=== PATIENT | male | born 1960 | race Caucasian/White ===

== ENCOUNTER → 2020-06-04 09:01 | Outpatient (BNVA) | payer MEDICARE, SELFPAY | PROVIDERS: PCP Nurse Practitioner Family; Visit Provider Nurse Practitioner Family | DX: I10 Essential (primary) hypertension (principal); H26.9 Unspecified cataract | CPT/HCPCS: 80053; 80061; 84443; 85025 ==

== ENCOUNTER → 2021-03-21 08:49 | Outpatient (BNVA) | payer MEDICARE, SELFPAY | PROVIDERS: PCP Nurse Practitioner Family; Visit Provider Nurse Practitioner Family | DX: I10 Essential (primary) hypertension (principal); Z12.5 Encounter for screening for malignant neoplasm of prostate | CPT/HCPCS: 80053; 80061; 84443; 85025; G0103 ==

== ENCOUNTER 2021-04-24 16:54 | Inpatient (IN) | payer MEDICARE, SELFPAY ==
[2021-04-24] VITALS (8 sets, daily range): BP systolic 94–116; BP diastolic 58–70; PULSE 75–87; RESP 18–34; TEMP 36.7; O2SAT 95–98; BMI 24.4
--- NOTE | 2021-04-24 16:59 | XRR_ITS ---
PROCEDURE INFORMATION: Exam: XR Chest Exam date and time: 04/24/2021 4:59 PM Age: 60 years old Clinical indication: Sternal or substernal pain; Patient HX: Chest pain x today TECHNIQUE: Imaging protocol: XR of the chest. Views: 1 view. COMPARISON: No relevant prior studies available. FINDINGS: Lungs: Unremarkable. No consolidation. Pleural spaces: Unremarkable. No pleural effusion. No pneumothorax. Heart/Mediastinum: Unremarkable. No cardiomegaly. Bones/joints: Unremarkable. XR/XR chest 1V portable [id number] IMPRESSION: No acute findings.
--- NOTE | 2021-04-24 16:59 | ECG_ITS ---
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 Measurements Intervals [place] Rate: 80 P: 13 CA: 134 QRS: -1 QRSD: 89 T: 30 QT: 372 QTc: 430 Interpretive Statements SINUS RHYTHM No previous ECG available for comparison Electronically Signed On 04-24-2021 20:03:59 CDT by Samuel Morrow M.D. [id number]
--- NOTE | 2021-04-24 17:05 | CTR_ITS ---
PROCEDURE INFORMATION: Exam: CTA Chest Without And With Contrast Exam date and time: 04/24/2021 5:05 PM Age: 60 years old Clinical indication: Sternal or substernal pain; Abdominal pain; Localized; Upper; Additional info: Rule out dissection TECHNIQUE: Imaging protocol: Computed tomographic angiography of the chest without and with contrast. 3D rendering (Not supervised by radiologist): MIP and/or 3D reconstructed images were created by the technologist. Radiation optimization: All CT scans at this facility use at least one of these dose optimization techniques: automated exposure control; mA and/or kV adjustment per patient size (includes targeted exams where dose is matched to clinical indication); or iterative reconstruction. Contrast material: OMNI 350; Contrast volume: 95 ml; Contrast route: INTRAVENOUS (IV); COMPARISON: CR (CHEST, ) 04/24/2021 5:15 PM RADIATION DOSE METRICS: Total DLP (mGy-cm): 1445.03 FINDINGS: Pulmonary arteries: The pulmonary arteries are adequately opacified for evaluation to the subsegmental level. There is no filling defect to suggest embolism. Aorta: No aortic dissection. The aortic sinus is dilated measuring up to 5 cm. Lungs: There is subsegmental atelectasis in the lung bases. Pleural spaces: Unremarkable. No pneumothorax. No pleural effusion. Heart: The heart is unremarkable. There is no pericardial effusion. Lymph nodes: There is no mediastinal or hilar lymphadenopathy. Bones/joints: Bones are unremarkable. Soft tissues: The extrathoracic soft tissues are unremarkable. Other findings: There are chronic bilateral L5 pars defects with grade 1 anterolisthesis of L5 on S1. IMPRESSION: 1. No pulmonary embolism. 2. 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 There is no aortic dissection. In general, aortic diameters of 5.[address] patients at high risk for rupture and should be considered for intervention. If connective tissue diseases such as Marfan or Mustapha-Danlos disease is known, then a diameter of 5 cm prompts consideration of prophylactic aortic root replacement. PROCEDURE INFORMATION: Exam: CT Angiography Abdomen Without And With Contrast Exam date and time: 04/24/2021 5:05 PM Age: 60 years old Clinical indication: Sternal or substernal pain; Abdominal pain; Localized; Upper; Additional info: Rule out dissection TECHNIQUE: Imaging protocol: Computed tomographic angiography images of the abdomen without and with intravenous contrast material, including non-contrast images if performed. 3D rendering (Not supervised by radiologist): MIP and/or 3D reconstructed images were created by the technologist. Radiation optimization: All CT scans at this facility use at least one of these dose optimization techniques: automated exposure control; mA and/or kV adjustment per patient size (includes targeted exams where dose is matched to clinical indication); or iterative reconstruction. Contrast material: OMNI 350; Contrast volume: 95 ml; Contrast route: INTRAVENOUS (IV); COMPARISON: CR (CHEST, ) 04/24/2021 5:15 PM RADIATION DOSE METRICS: Total DLP (mGy-cm): 1445.03 FINDINGS: Aorta: There is mild aortic atherosclerotic disease. Celiac trunk and mesenteric arteries: No occlusion or significant stenosis. Renal arteries: No occlusion or significant stenosis. Liver: The liver is normal. Gallbladder and bile ducts: The gallbladder is normal. There is no biliary dilation. Pancreas: There are pancreatic calcifications suggesting sequelae of chronic pancreatitis. There is mild peripancreatic edema around the head, neck and uncinate process. Spleen: The spleen is unremarkable. Adrenals: The adrenal glands are unremarkable. Kidneys and ureters: The kidneys are unremarkable. No hydronephrosis or stones. No ureteral dilation. Stomach and bowel: The stomach is unremarkable. That Visible portions of the small bowel and colon are unremarkable. Appendix: The appendix is normal. Lymph nodes: Unremarkable. No enlarged lymph nodes. Intraperitoneal space: There is no free air or significant intraperitoneal free fluid. Bones/joints: There are chronic bilateral L5 pars defects with grade 1 anterolisthesis of L5 on S1. The visible portion of the pelvis and sacrum is intact. Soft tissues: The abdominal wall is intact. CT/CT angio chest abdomen IMPRESSION: 1. Acute interstitial edematous pancreatitis. No sign of necrosis or hemorrhage. 2. Incidental findings above. Radiation Dose CTDIVOL = (mGy): DLP = 1445.03~1445.03 (mGy-cm)
[2021-04-24] MEDS: morphine 4 mg/mL SDV 1 mL IVP (17:14)
--- NOTE | 2021-04-24 17:19 | ED_ITS ---
HPI - General Adult General: Chief complaint: ER Hold Stated complaint: CHEST PAIN Time Seen by Provider: 04/24/21 16:57 History of Present Illness: HPI narrative: CC: Chest Pain HPI: This is a [60] yo patient hx of smoking, HTN presenting to the ED complaining of acute sudden onset of sharp persistent chest pain from midepigastric area radiating to chest x 1 hr. patient was watching TV at home when this all happened and developed sudden onset sharp pain. patient denies any drug use no associated with shortness of breath, chest pain or dyspnea on exertion. Pain is not tearing in nature and does not radiate to the back. Pain not associated with vomiting or PO intake. Denies any recent sympathomimetic drug use. Patient denies any cough. Denies palpitations, dysphagia, diaphoresis, radiation of pain to bilateral arms, jaw. Denies F/N/V/D. Patient denies any recent immobility, surgery, unilateral leg swelling, or prior PE. Patient denies any orthopnea. No family history of aortic diseases. No history of Marfan, IV drug use, valvular disorder, or Erhlos Danlos disease. Onset: 2 hrs ago Duration: ongoing for the last 2 hrs Location: home Severity: severe Review of Systems Narrative: Constitutional: No fever, no chills. HEENT: No vision changes, no sore throat. CV: +chest pain, no palpitations. PULM: No cough, No dyspnea. GI: +abdominal pain, +N/-V/-D. : No dysuria, no frequency, no hematuria. MSKEL: No arthralgias, no edema. SKIN: No new rashes, no lesions. NEURO: No headache, no focal weakness. HEME: No easy bleeding or bruising. PSYCH: No change in mood or affect. [facility] ED PFSH: Medical History (Updated 04/25/21 @ 04:40 by Alicia Herrera MD) Aneurysm of thoracic aorta Cataract Essential hypertension Surgical History History of back surgery 1993 Hx of tonsillectomy Family History Father Hypertension Social History Smoking and tobacco status: former smoker Second hand smoke exposure: Yes Alcohol intake: never Desire information about alcohol rehabilitation?: No Counseling given: No Desire information about substance/drug rehabilitation?: No Counseling given: No Adopted: No Caregiver/support person: No Lives independently: Yes Household members: spouse Housing: House Marital status: Number of children: 2 Highest education level completed: High School Graduate Current occupational status: disabled Physical Exam Narrative: EXAM NARRATIVE: Head: Atraumatic, normocephalic Eyes: PERRL, EOMI, conjunctiva without injection ENT: Throat without erythema, lesions or exudate, MMM NECK: Supple, trachea midline, no JVD LUNGS: LCTA CV: RRR, S1,S2, no murmurs, rubs, gallops. 2+ peripheral pulses in UEs ABDOMEN: Soft, +moderate epigastric tenderness to palpation, nondistended, BS x4, no rigidity, no guarding, no rebound EXTREMITY: Normal ROM, no pitting edema, no calf tenderness to palpation SKIN: No rash or erythema NEURO: Awake and alert. No focal motor deficits. PSYCH: Normal mood and affect. Course Vital Signs: Vital signs: Vital Signs Temperature 98.1 F 04/26/21 08:00 Pulse Rate 77 04/26/21 10:30 Respiratory Rate 18 04/26/21 08:00 Blood Pressure 134/76 04/26/21 08:00 Pulse Oximetry 93 04/26/21 10:30 MDM - General Adult MDM Narrative: Medical decision making narrative: [60]yo patient w/ hx of HTN, smoking presenting to the ED with evaluation of new onset sharp chest pain lasting for 2 hrs. HDS, pulse 2+ radially bilaterally, no signs of fluid overload, AAOx3, neuro exam intact. Given History and Exam today I have no suspicion for ACS, Pneumothorax, Pneumonia, Pulmonary Embolus, Tamponade, Aortic Dissection or other emergent problems as a cause for this presentation. Workup: ECG, CXR, CBC, BMP, Troponin Interventions: Ibuprofen 600mg PRN pain Findings: ECG: No overt evidence of STEMI, hyperacute T waves, localizable STD or T wave inversions. No evidence of Brugada?s sign, delta wave, epsilon wave, significantly prolonged QTc, or malignant arrhythmia. No Q waves. CTA chest and abdomen showed thoracic aorta aneurysm of 5 cm and interstitial edematous pancreatitis. White count of 20 3K. Patient has had intractable abdominal pain due to pancreatitis. No signs of nausea or vomiting. No signs of biliary obstructions. Disposition: Admission. Patient is status post 2 L of fluid, will be admitted to the hospital for evaluation of severe pancreatitis and intractable pain. Lab Data: Labs: Lab Results 04/24/21 04/24/21 04/24/21 Range/Units 17:23 17:23 17:23 WBC 22.4 H (4.0-10.0) 10^3/ uL RBC 4.26 (4.1-5.3) 10^6/u L Hgb 14.5 (11.7-16.6) g/dL Hct 41.4 L (42.0-52.0) % MCV 97.2 H (80-94) fl MCH 34.0 (28.0-34.0) pg MCHC 35.0 (30.0-36.0) g/dL RDW 14.6 (12.1-15.1) % Plt Count 357 (130-400) 10^3/c mm MPV 9.6 (7.4-10.4) fL Neut % (Auto) 79.8 % Lymph % (Auto) 11.2 % Towner % (Auto) 7.1 % Eos % (Auto) 0.7 % Baso % (Auto) 0.4 % Neut # (Auto) 17.87 H (1.8-7.7) 10^3/u L Lymph # (Auto) 2.5 (0.8-4.8) 10^3/u L Towner # (Auto) 1.6 H (0.2-0.9) 10^3/u L Eos # (Auto) 0.2 (0.0-0.8) 10^3/u L Baso # (Auto) 0.1 (0.0-0.1) 10^3/u L Nucleated RBC % (a uto) 0 % Nucleated RBCs # 0.0 /100WBC Sodium Cancelled Potassium Cancelled Chloride Cancelled Carbon Dioxide Cancelled Anion Gap Cancelled BUN Cancelled Creatinine Cancelled GFR Calculation Cancelled Glucose Cancelled Calculated Osmolal ity Cancelled Calcium Cancelled Magnesium (1.7-2.3) mg/dL Total Bilirubin (0.15-1.2) mg/dL AST (0-40) U/L ALT (0-41) U/L Alkaline Phosphata se (40-130) IU/L Troponin T Baselin e 6 (0-15) ng/L Troponin T 120 Min lower [place] (0-15) ng/L Delta Troponin T (0-10) ABS# Total Protein (6.6-8.7) g/dL Albumin (3.5-5.2) g/dL Globulin (1.3-4.6) g/dL Triglycerides (0-150) mg/dL LDL Cholesterol Di rect (0-100) mg/dL Lipase (13-60) U/L Ethyl Alcohol (0-10) mg/dL 04/24/21 04/24/21 04/24/21 Range/Units 17:23 17:23 19:36 WBC (4.0-10.0) 10^3/ uL RBC (4.1-5.3) 10^6/u L Hgb (11.7-16.6) g/dL Hct (42.0-52.0) % MCV (80-94) fl MCH (28.0-34.0) pg MCHC (30.0-36.0) g/dL RDW (12.1-15.1) % Plt Count (130-400) 10^3/c mm MPV (7.4-10.4) fL Neut % (Auto) % Lymph % (Auto) % Towner % (Auto) % Eos % (Auto) % Baso % (Auto) % Neut # (Auto) (1.8-7.7) 10^3/u L Lymph # (Auto) (0.8-4.8) 10^3/u L Towner # (Auto) (0.2-0.9) 10^3/u L Eos # (Auto) (0.0-0.8) 10^3/u L Baso # (Auto) (0.0-0.1) 10^3/u L Nucleated RBC % (a uto) % Nucleated RBCs # /100WBC Sodium 138 Potassium 3.8 Chloride 100 Carbon Dioxide 21 L Anion Gap 20.8 H BUN 9 Creatinine 0.8 GFR Calculation 98.6 Glucose 117 H Calculated Osmolal ity 286 Calcium 8.8 Magnesium (1.7-2.3) mg/dL Total Bilirubin 0.4 (0.15-1.2) mg/dL AST 14 (0-40) U/L ALT 16 (0-41) U/L Alkaline Phosphata se 71 (40-130) IU/L Troponin T Baselin e (0-15) ng/L Troponin T 120 Min lower [place] 6.61 (0-15) ng/L Delta Troponin T 0.61 (0-10) ABS# Total Protein 6.8 (6.6-8.7) g/dL Albumin 4.5 (3.5-5.2) g/dL Globulin 2.3 (1.3-4.6) g/dL Triglycerides 429 H (0-150) mg/dL LDL Cholesterol Di rect 67 (0-100) mg/dL Lipase > 3781 H (13-60) U/L Ethyl Alcohol < 10 (0-10) mg/dL 04/25/21 04/25/21 Range/Units 06:02 06:02 WBC 17.8 H (4.0-10.0) 10^3/ uL RBC 3.73 L (4.1-5.3) 10^6/u L Hgb 12.8 (11.7-16.6) g/dL Hct 37.0 L (42.0-52.0) % MCV 99.2 H (80-94) fl MCH 34.3 H (28.0-34.0) pg MCHC 34.6 (30.0-36.0) g/dL RDW 14.7 (12.1-15.1) % Plt Count 279 (130-400) 10^3/c mm MPV 10.0 (7.4-10.4) fL Neut % (Auto) 82.9 % Lymph % (Auto) 8.5 % Towner % (Auto) 7.9 % Eos % (Auto) 0.1 % Baso % (Auto) 0.2 % Neut # (Auto) 14.76 H (1.8-7.7) 10^3/u L Lymph # (Auto) 1.5 (0.8-4.8) 10^3/u L Towner # (Auto) 1.4 H (0.2-0.9) 10^3/u L Eos # (Auto) 0.0 (0.0-0.8) 10^3/u L Baso # (Auto) 0.0 (0.0-0.1) 10^3/u L Nucleated RBC % (a uto) 0 % Nucleated RBCs # 0.0 /100WBC Sodium 139 Potassium 4.1 Chloride 108 H Carbon Dioxide 21 L Anion Gap 14.1 BUN 6 L Creatinine 0.6 L GFR Calculation 137.4 H Glucose 121 H Calculated Osmolal ity 287 Calcium 7.7 L Magnesium 1.7 (1.7-2.3) mg/dL Total Bilirubin 0.5 (0.15-1.2) mg/dL AST 13 (0-40) U/L ALT 11 (0-41) U/L Alkaline Phosphata se 63 (40-130) IU/L Troponin T Baselin e (0-15) ng/L Troponin T 120 Min lower [place] (0-15) ng/L Delta Troponin T (0-10) ABS# Total Protein 6.0 L (6.6-8.7) g/dL Albumin 3.7 (3.5-5.2) g/dL Globulin 2.3 (1.3-4.6) g/dL Triglycerides (0-150) mg/dL LDL Cholesterol Di rect (0-100) mg/dL Lipase (13-60) U/L Ethyl Alcohol (0-10) mg/dL Imaging Data^: Other Imaging: Radiologist's impression: [address] [id number] Scan ReportSigned Patient: Rickey Herman #: [id number]: 1960[facility][id number]/Sex: 60 / MADM Date: 04/24/21Loc: ERRoom/Bed:Attending Dr: Ordering Provider/Ordering MD: Bernadine Washington MD Date of Service: 04/24/21 Procedure(s): CT angio chest abdomen Accession Number(s): [id number] Report Number: [id number] PROCEDURE INFORMATION: Exam: CTA Chest Without And With Contrast Exam date and time: 04/24/2021 5:05 PM Age: 60 years old Clinical indication: Sternal or substernal pain; Abdominal pain; Localized; Upper; Additional info: Rule out dissection TECHNIQUE: Imaging protocol: Computed tomographic angiography of the chest without and with contrast. 3D rendering (Not supervised by radiologist): MIP and/or 3D reconstructed images were created by the technologist. Radiation optimization: All CT scans at this facility use at least one of these dose optimization techniques: automated exposure control; mA and/or kV adjustment per patient size (includes targeted exams where dose is matched to clinical indication); or iterative reconstruction. Contrast material: OMNI 350; Contrast volume: 95 ml; Contrast route: INTRAVENOUS (IV); COMPARISON: CR (CHEST, ) 04/24/2021 5:15 PM RADIATION DOSE METRICS: Total DLP (mGy-cm): 1445.03 FINDINGS: Pulmonary arteries: The pulmonary arteries are adequately opacified for evaluation to the subsegmental level. There is no filling defect to suggest embolism. Aorta: No aortic dissection. The aortic sinus is dilated measuring up to 5 cm. Lungs: There is subsegmental atelectasis in the lung bases. Pleural spaces: Unremarkable. No pneumothorax. No pleural effusion. Heart: The heart is unremarkable. There is no pericardial effusion. Lymph nodes: There is no mediastinal or hilar lymphadenopathy. Bones/joints: Bones are unremarkable. Soft tissues: The extrathoracic soft tissues are unremarkable. Other findings: There are chronic bilateral L5 pars defects with grade 1 anterolisthesis of L5 on S1. IMPRESSION: 1. No pulmonary embolism. 2. 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 There is no aortic dissection. In general, aortic diameters of 5.[address] patients at high risk for rupture and should be considered for intervention. If connective tissue diseases such as Marfan or Mustapha-Danlos disease is known, then a diameter of 5 cm prompts consideration of prophylactic aortic root replacement. PROCEDURE INFORMATION: Exam: CT Angiography Abdomen Without And With Contrast Exam date and time: 04/24/2021 5:05 PM Age: 60 years old Clinical indication: Sternal or substernal pain; Abdominal pain; Localized; Upper; Additional info: Rule out dissection TECHNIQUE: Imaging protocol: Computed tomographic angiography images of the abdomen without and with intravenous contrast material, including non-contrast images if performed. 3D rendering (Not supervised by radiologist): MIP and/or 3D reconstructed images were created by the technologist. Radiation optimization: All CT scans at this facility use at least one of these dose optimization techniques: automated exposure control; mA and/or kV adjustment per patient size (includes targeted exams where dose is matched to clinical indication); or iterative reconstruction. Contrast material: OMNI 350; Contrast volume: 95 ml; Contrast route: INTRAVENOUS (IV); COMPARISON: CR (CHEST, ) 04/24/2021 5:15 PM RADIATION DOSE METRICS: Total DLP (mGy-cm): 1445.03 FINDINGS: Aorta: There is mild aortic atherosclerotic disease. Celiac trunk and mesenteric arteries: No occlusion or significant stenosis. Renal arteries: No occlusion or significant stenosis. Liver: The liver is normal. Gallbladder and bile ducts: The gallbladder is normal. There is no biliary dilation. Pancreas: There are pancreatic calcifications suggesting sequelae of chronic pancreatitis. There is mild peripancreatic edema around the head, neck and uncinate process. Spleen: The spleen is unremarkable. Adrenals: The adrenal glands are unremarkable. Kidneys and ureters: The kidneys are unremarkable. No hydronephrosis or stones. No ureteral dilation. Stomach and bowel: The stomach is unremarkable. That Visible portions of the small bowel and colon are unremarkable. Appendix: The appendix is normal. Lymph nodes: Unremarkable. No enlarged lymph nodes. Intraperitoneal space: There is no free air or significant intraperitoneal free fluid. Bones/joints: There are chronic bilateral L5 pars defects with grade 1 anterolisthesis of L5 on S1. The visible portion of the pelvis and sacrum is intact. Soft tissues: The abdominal wall is intact. CT/CT angio chest abdomen IMPRESSION: 1. Acute interstitial edematous pancreatitis. No sign of necrosis or hemorrhage. 2. Incidental findings above. Radiation Dose CTDIVOL = (mGy): DLP = 1445.03~1445.03 (mGy-cm) Dictated By:Eduardo Weinberg MDSigned By:Eduardo Weinberg MDSigned Date/Time:04/24/211819DD/ 16 Discharge Plan Discharge Patient Disposition: Admitted As Inpatient Admit Provider: Alicia Herrera Clinical Impression: Chest pain, Aneurysm of thoracic aorta, Intractable abdominal pain Acute pancreatitis Qualifiers: Pancreatitis type: unspecified pancreatitis type Acute pancreatitis complication: no infection or necrosis Qualified Code(s): K85.90 - Acute pancreatitis without necrosis or infection, unspecified Condition: Stable Coding Level of Care Code ED Data Warehouse Architect for Vinnie Reyes
[2021-04-24] MEDS: iohexol 350 mg/mL 100 mL Btl IV (17:30)
[2021-04-24 17:32] LABS: Basophils # 0.1 10^3/uL (0.0-0.1); Basophils % 0.4 %; Eosinophils # 0.2 10^3/uL (0.0-0.8); Eosinophils % 0.7 %; Hematocrit 41.4 % (42.0-52.0); Hemoglobin 14.5 g/dL (11.7-16.6); Lymphocytes # 2.5 10^3/uL (0.8-4.8); Lymphocytes % 11.2 %; Mean Corpuscular Volume 97.2 fl (80-94); Mean Platelet Volume 9.6 fL (7.4-10.4); Monocytes # 1.6 10^3/uL (0.2-0.9); Monocytes % 7.1 %; Neutrophils # 17.87 10^3/uL (1.8-7.7); Neutrophils % 79.8 %; Nucleated Red Blood Cells % 0 %; Platelet Count 357 10^3/cmm (130-400); Red Blood Count 4.26 10^6/uL (4.1-5.3); Red Cell Distribution Width 14.6 % (12.1-15.1); White Blood Count 22.4 10^3/uL (4.0-10.0)
--- NOTE | 2021-04-24 17:38 | PC.PHAR ---
PT STATES HE TAKES CARE OF HIS OWN MEDICATIONS-PT STATES HE ONLY HAS ON PRESCRIPTION MEDICATION LISINOPRIL
[2021-04-24 17:53] LABS: Troponin(5th) Baseline 6 ng/L (0-15)
[2021-04-24] MEDS: sodium chloride 0.9% 1,000 ML 999 ML IV ×2 (18:40)
--- NOTE | 2021-04-24 18:59 | ECG_ITS ---
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 Measurements Intervals [place] Rate: 68 P: 8 MN: 157 QRS: -6 QRSD: 110 T: 13 QT: 425 QTc: 455 Interpretive Statements SINUS RHYTHM Compared to ECG 04/24/2021 17:06:24 No significant changes Electronically Signed On 04-25-2021 20:43:11 CDT by Samuel Morrow M.D. [id number] f
[2021-04-24] MEDS: fentaNYL 50 mcg/mL INJ 2mL IVP (19:15)
[2021-04-24] MEDS: famotidine 20 mg/2 mL INJ IVP (19:15)
--- NOTE | 2021-04-24 19:33 | PC.NURSE ---
PT RATING LUQ ABD PAIN 10/10, ROCKING BACK AND FORTH ON THE BED, RESPIRATIONS 32, STATING I CAN'T TAKE THIS! DR MENJIVAR NOTIFIED. ADDITIONAL ORDERS RECEIVED.
[2021-04-24] MEDS: HYDROmorphone 1 mg/mL INJ 1 mL IVP ×3 (19:48→22:39)
[2021-04-24] MEDS: sodium chloride 0.9% 1,000 ML 250 ML IV (20:25)
[2021-04-24 20:27] LABS: Troponin 5 2HR 6.61 ng/L (0-15); Troponin 5 2HR Delta 0.61 ABS# (0-10)
[2021-04-24 21:01] LABS: Alanine Aminotransferase 16 U/L (0-41); Albumin Level 4.5 g/dL (3.5-5.2); Alkaline Phosphatase 71 IU/L (40-130); Aspartate Amino Transferase 14 U/L (0-40); Blood Urea Nitrogen 9 mg/dL (8-23); Calcium 8.8 mg/dL (8.5-10.5); Carbon Dioxide 21 mmol/L (22-29); Creatinine Clr Calc Pharmacy 106.8494; Globulin 2.3 g/dL (1.3-4.6); Glomerular Filtration Rate 98.6 mL/min (90-130); Glucose 117 mg/dL (65-115); Total Bilirubin 0.4 mg/dL (0.15-1.2); Total Protein 6.8 g/dL (6.6-8.7); Triglycerides 429 mg/dL (0-150)
[2021-04-24 21:41] LABS: Chloride 100 mmol/L (98-107); Potassium 3.8 mmol/L (3.5-5.1); Sodium 138 mmol/L (136-145)
--- NOTE | 2021-04-24 21:46 | PM.HP ---
Providers/Chief Complaint Admitting Physician: Alicia Herrera MD Primary Care Provider: SELWYN Gould-Mikki Chief Complaint: CHEST PAIN History of Present Illness Rickey Herman is a 60 year old male with past medical history of hypertension who presents to the ER today with chief complaint of abdominal pain that started yesterday afternoon. Patient describes the pain as being located in the epigastric region and extending to either side in a bandlike fashion. Associated symptoms include nausea. Rates pain as a cramping pain, 10 on 10 intensity at its peak, improving to 4-5 out of 10, no apparent exacerbating factors except movement from side to side. He has had poor appetite since onset of symptoms. No nausea or vomiting. Bowel movements are unchanged. Diagnostics in the ER showed elevated lipase greater than [address] abdomen with signs of acute pancreatitis. Patient denies any past history of pancreatitis. No history of alcohol consumption. Triglyceride level checked today at 429. LFTs within range, no signs of biliary stones or obstruction on CT abdomen. Review of Systems General: Reports: 10 or more systems reviewed and unremarkable except in HPI and below Const: Denies: fever(s), chills or body aches Eyes: Denies: change in vision, blurry vision or photophobia ENMT: Reports: hoarseness; Denies: throat pain, enlarged tonsils, odynophagia or nasal congestion Card: Denies: chest pain, palpitations, irregular heart rhythm, edema, swelling of feet/ankles, lightheadedness, pre-syncope, dyspnea on exertion or orthopnea Resp: Denies: dyspnea, productive cough, non-productive cough, wheezing, stridor, pain on inspiration, change in phlegm color, hemoptysis or chest congestion GI: Denies: abdominal pain, nausea, vomiting, hematemesis, coffee ground emesis, dysphagia, heartburn, diarrhea, constipation, GI cramping, change in stool character, hematochezia or melena : Denies: flank pain, dysuria, urinary frequency, urinary urgency, urinary hesitancy or hematuria Musc: Denies: neck pain, back pain, extremity pain, joint swelling, joint warmth or deformity Neuro: Denies: headache(s), numbness in extremities, weakness in extremities, sensory changes, difficulty walking, frequent falls, dizziness, vertigo, behavioral changes, Slurred speech present or seizure-like activity Psych: Denies: anxiety, depression, suicidal ideation or homicidal ideation Endo: Denies: polyuria, polydipsia, tired all the time, cold intolerance or hot flashes Murali/Lymph: Denies: easy bruising or easy bleeding Medications/Allergies Home Medications Medication Instructions Recorded Confirmed Last Taken Type Fish Oil 1 cap PO QAM 04/24/21 04/24/21 04/24/21 07:00 History rzqckfk-lxzfiraalgwqg-rhnogfcq 1 tab PO Q4H PRN 04/24/21 04/24/21 04/24/21 12:00 History [Excedrin Migraine] 1 TAB lisinopril 40 mg PO QAM 04/24/21 04/24/21 04/24/21 07:00 History Allergies Allergy/AdvReac Type Severity Reaction Status Date / Time No Known Allergies Allergy Verified 04/24/21 17:38 PFSH Acute PFSH: Medical History (Updated 04/25/21 @ 04:40 by Alicia Herrera MD) Aneurysm of thoracic aorta Cataract Essential hypertension Surgical History History of back surgery 1993 Hx of tonsillectomy Family History Father Hypertension Social History Smoking and tobacco status: former smoker Second hand smoke exposure: Yes Alcohol intake: never Desire information about alcohol rehabilitation?: No Counseling given: No Desire information about substance/drug rehabilitation?: No Counseling given: No Adopted: No Caregiver/support person: No Lives independently: Yes Household members: spouse Housing: House Marital status: Number of children: 2 Highest education level completed: High School Graduate Current occupational status: disabled Vitals/I&O/Wt Last Vital Signs Temp 98.0 F 04/24/21 16:55 Pulse 77 04/24/21 18:43 Resp 28 H 04/24/21 20:35 BP 94/58 04/24/21 18:43 Pulse Ox 95 04/24/21 18:43 Weight last 48 hrs Weight 79.379 kg Physical Exam Narrative: EXAM NARRATIVE: General: AO x3, patient is visibly uncomfortable due to abdominal pain at the time of exam HEENT: PERRLA, pupils bilaterally equal and reactive, pallors not present Chest: Normal vesicular breath sounds, no added sounds, equal good air entry bilaterally CVS: S1-S2 regular, no murmurs, no tachycardia, no gallops, no rubs Abdomen: Soft, nondistended, discomfort to palpation in the midepigastric region Neuro: No focal deficits, no facial deformity, AO x3, power 5/5 in all limbs Data : 04/24/21 17:23 04/24/21 17:23 A&P Assessment and plan (1) Acute pancreatitis: Patient presenting today with severe abdominal pain, associated nausea poor p.o. intake Elevated lipase and CT with evidence of acute pancreatitis. N.p.o., bowel rest IV fluids normal saline at 125 cc an hour Pain control with IV Dilaudid and IV Toradol Noted leukocytosis with WBC count at 22, suspect this to be related to acute inflammation and dehydration. No current signs of necrotizing pancreatitis or pancreatic abscess on CT. Hold off on antibiotics as no current signs of secondary infection at this time. Monitor WBC count closely with hydration. CT abdomen without any biliary dilation or evidence of stones. LFT within range. Noted mild hypertriglyceridemia with levels of 492.Mild hypertriglyceridemia generally is associated with a lower risk of acute pancreatitis, therefore less likely that this is the driving factor currently. Holding off on insulin drip for now as level less than 500. may need initiation of fibrate therapy once able to tolerate p.o. intake Status: Acute Qualifiers: Pancreatitis type: unspecified pancreatitis type Acute pancreatitis complication: no infection or necrosis Qualified Code(s): K85.90 - Acute pancreatitis without necrosis or infection, unspecified Additional A&P Information Hypertension: Continue home dose of lisinopril DVT prophylaxis: Lovenox Full code Attestations Medical Necessity Statement*: Anticipate greater than 2 midnight admission for management of acute pancreatitis, need for IV hydration, pain control, ability to tolerate p.o. intake Coding Level of Care Code Acute Certified Wellness Program Manager for [facility] Diagnoses Acute pancreatitis K85.90 Pancreatitis type: unspecified pancreatitis type Acute pancreatitis complication: no infection or necrosis
[2021-04-24 21:50] LABS: Alcohol Level < 10 mg/dL (0-10); Anion Gap 20.8 (5-19); Osmolality Calculated 286 mOsm/kg (285-295)
[2021-04-24] MEDS: HYDROmorphone 1 mg/mL INJ 1 mL 0.5 MG IVP (21:52)
[2021-04-24 22:14] LABS: LDL Cholesterol Direct 67 mg/dL (0-100)
[2021-04-24] MEDS: enoxaparin 40 mg/0.4 mL Syringe SUBCUT (22:38)
[2021-04-24] MEDS: ondansetron 2 mg/ML SDV 2 mL 4 MG IVP (22:39)
--- NOTE | 2021-04-24 22:59 | ECG_ITS ---
[facility] Test Date: 2021-04-24 Pat Name: Rickey Herman Department: Room: Gender: Male Regional Branch Manager: : 1960 Requested By: Bernadine Washington Order Number: [id number] Ronit MD: Samuel Morrow M.D. Measurements Intervals [place] Rate: 68 P: 46 WI: 183 QRS: -5 QRSD: 86 T: 11 QT: 412 QTc: 440 Interpretive Statements SINUS RHYTHM Compared to ECG 04/24/2021 20:02:22 No significant changes Electronically Signed On 04-25-2021 20:40:27 CDT by Samuel Morrow M.D. [id number]
[2021-04-25] VITALS (14 sets, daily range): BP systolic 105–134; BP diastolic 65–79; PULSE 62–81; RESP 16–29; TEMP 36.3–36.9; O2SAT 93–97; BMI 24.4
[2021-04-25] MEDS: sodium chloride 0.9% 1,000 ML 125 ML IV (00:21)
[2021-04-25] MEDS: ketorolac 30 mg/mL INJ 15 MG IVP (00:23)
[2021-04-25] MEDS: morphine 4 mg/mL SDV 1 mL 2 MG IVP ×2 (00:25→06:00)
--- NOTE | 2021-04-25 00:50 | PC.NURSE ---
PT'S JING UPDATED ON PT CONDITION AND INFORMED OF PT'S HOLD STATUS IN ER.
[2021-04-25] MEDS: HYDROmorphone 1 mg/mL INJ 1 mL 2 MG IVP ×3 (01:50→13:08)
[2021-04-25] MEDS: ondansetron 2 mg/ML SDV 2 mL 4 MG IVP (06:00)
[2021-04-25 06:18] LABS: Basophils % 0.2 %; Eosinophils % 0.1 %; Hemoglobin 12.8 g/dL (11.7-16.6); Lymphocytes # 1.5 10^3/uL (0.8-4.8); Lymphocytes % 8.5 %; Mean Corpuscular HGB Conc 34.6 g/dL (30.0-36.0); Mean Corpuscular Hemoglobin 34.3 pg (28.0-34.0); Mean Corpuscular Volume 99.2 fl (80-94); Monocytes # 1.4 10^3/uL (0.2-0.9); Monocytes % 7.9 %; Neutrophils # 14.76 10^3/uL (1.8-7.7); Neutrophils % 82.9 %; Nucleated Red Blood Cells % 0 %; Platelet Count 279 10^3/cmm (130-400); Red Blood Count 3.73 10^6/uL (4.1-5.3); Red Cell Distribution Width 14.7 % (12.1-15.1); White Blood Count 17.8 10^3/uL (4.0-10.0)
[2021-04-25 06:36] LABS: Alanine Aminotransferase 11 U/L (0-41); Albumin Level 3.7 g/dL (3.5-5.2); Alkaline Phosphatase 63 IU/L (40-130); Anion Gap 14.1 (5-19); Aspartate Amino Transferase 13 U/L (0-40); Blood Urea Nitrogen 6 mg/dL (8-23); Calcium 7.7 mg/dL (8.5-10.5); Carbon Dioxide 21 mmol/L (22-29); Chloride 108 mmol/L (98-107); Globulin 2.3 g/dL (1.3-4.6); Glomerular Filtration Rate 137.4 mL/min (90-130); Glucose 121 mg/dL (65-115); Magnesium 1.7 mg/dL (1.7-2.3); Osmolality Calculated 287 mOsm/kg (285-295); Potassium 4.1 mmol/L (3.5-5.1); Sodium 139 mmol/L (136-145); Total Bilirubin 0.5 mg/dL (0.15-1.2)
[2021-04-25 06:38] LABS: Creatinine Clr Calc Pharmacy 142.4659
[2021-04-25] MEDS: lisinopril 20 mg Tablet 40 MG PO (10:44)
[2021-04-25] MEDS: famotidine 20 mg/2 mL INJ IVP (10:46)
[2021-04-25] MEDS: dextrose 5%-sod chloride 0.9% 1,000 ML 50 ML IV (15:34)
--- NOTE | 2021-04-25 16:04 | P.PN_ITS ---
Subjective Subjective: Interval history: Admitted overnight. Patient states pain is a lot better but still having the same. Denies any further nausea or vomiting. Has remained n.p.o. Has been getting morphine and Dilaudid. Vitals/I&O/Wt Last Vital Signs Temp 97.4 F L 04/25/21 15:52 Pulse 75 04/25/21 15:52 Resp 16 04/25/21 15:52 BP 134/76 04/25/21 15:52 Pulse Ox 94 04/25/21 15:52 04/25/21 04/25/21 04/25/21 06:59 14:59 22:59 Intake Total 3000 / 3000 1000 / 1000 Balance 3000 / 3000 1000 / 1000 Weight last 48 hrs Weight 79.379 kg Weight 79.379 kg Physical Exam Narrative: EXAM NARRATIVE: General: AO x3, patient is visibly uncomfortable due to abdominal pain at the time of exam HEENT: PERRLA, pupils bilaterally equal and reactive, pallors not present Chest: Normal vesicular breath sounds, no added sounds, equal good air entry bilaterally CVS: S1-S2 regular, no murmurs, no tachycardia, no gallops, no rubs Abdomen: Soft, nondistended, discomfort to palpation in the midepigastric region Neuro: No focal deficits, no facial deformity, AO x3, power 5/5 in all limbs Data : 04/25/21 06:02 04/25/21 06:02 A&P Assessment and plan (1) Acute pancreatitis: Patient presenting today with severe abdominal pain, associated nausea poor p.o. intake Elevated lipase and CT with evidence of acute pancreatitis. Advance gradually clear liquid diet. Will do very slow gradual advance depending on how he tolerates the diet. D5 NS at 50 cc an hour. Pain control with IV Dilaudid and IV Toradol Noted leukocytosis with WBC count at 22, suspect this to be related to acute inflammation and dehydration. No current signs of necrotizing pancreatitis or pancreatic abscess on CT. Hold off on antibiotics as no current signs of seco ndary infection at this time. Monitor WBC count closely with hydration. CT abdomen without any biliary dilation or evidence of stones. LFT within range. Noted mild hypertriglyceridemia with levels of 492.Mild hypertriglyceridemia generally is associated with a lower risk of acute pancreatitis, therefore less likely that this is the driving factor currently. Holding off on insulin drip for now as level less than 500. may need initiation of fibrate therapy once able to tolerate p.o. intake Zofran as needed. Protonix 40 mg IV daily. Status: Acute Qualifiers: Acute pancreatitis complication: no infection or necrosis Pancreatitis type: unspecified pancreatitis type Qualified Code(s): K85.90 - Acute pancreatitis without necrosis or infection, unspecified Additional A&P Information Hypertension: Continue home dose of lisinopril DVT prophylaxis: Lovenox Full code Clear liquid diet. Attestations Medical Necessity Statement*: Requires further hospitalization for management of acute pancreatitis as patient is unable to maintain p.o. intake. Time Spent in Patient Care: Greater than 35 minutes (>than 50% of time spent in counselling and/or direct pt care on unit) . Coding Level of Care Code Acute City [employer]erman for [facility] Diagnoses Acute pancreatitis K85.90 Acute pancreatitis complication: no infection or necrosis Pancreatitis type: unspecified pancreatitis type
[2021-04-25] MEDS: HYDROmorphone 1 mg/mL INJ 1 mL IVP (19:55)
[2021-04-25] MEDS: enoxaparin 40 mg/0.4 mL Syringe SUBCUT (22:18)
[2021-04-26] VITALS (15 sets, daily range): BP systolic 118–147; BP diastolic 73–83; PULSE 60–78; RESP 17–20; TEMP 36.7–37.4; O2SAT 92–94
[2021-04-26] MEDS: HYDROmorphone 1 mg/mL INJ 1 mL IVP ×3 (02:18→12:19)
[2021-04-26] MEDS: ondansetron 2 mg/ML SDV 2 mL 4 MG IVP (07:31)
[2021-04-26 07:35] LABS: Basophils % 0.2 %; Hematocrit 38.9 % (42.0-52.0); Hemoglobin 13.2 g/dL (11.7-16.6); Lymphocytes # 1.7 10^3/uL (0.8-4.8); Lymphocytes % 9.1 %; Mean Corpuscular HGB Conc 33.9 g/dL (30.0-36.0); Mean Corpuscular Hemoglobin 33.9 pg (28.0-34.0); Mean Platelet Volume 10.7 fL (7.4-10.4); Monocytes # 1.6 10^3/uL (0.2-0.9); Monocytes % 8.8 %; Neutrophils # 15.19 10^3/uL (1.8-7.7); Neutrophils % 81.5 %; Nucleated Red Blood Cells % 0 %; Platelet Count 268 10^3/cmm (130-400); Red Blood Count 3.89 10^6/uL (4.1-5.3); Red Cell Distribution Width 14.9 % (12.1-15.1); White Blood Count 18.6 10^3/uL (4.0-10.0)
[2021-04-26 07:59] LABS: Alanine Aminotransferase 12 U/L (0-41); Albumin Level 3.7 g/dL (3.5-5.2); Alkaline Phosphatase 63 IU/L (40-130); Anion Gap 13.4 (5-19); Aspartate Amino Transferase 15 U/L (0-40); Blood Urea Nitrogen 7 mg/dL (8-23); Calcium 8.2 mg/dL (8.5-10.5); Carbon Dioxide 24 mmol/L (22-29); Chloride 107 mmol/L (98-107); Creatinine Clr Calc Pharmacy 142.4659; Globulin 2.6 g/dL (1.3-4.6); Glomerular Filtration Rate 137.4 mL/min (90-130); Glucose 106 mg/dL (65-115); Osmolality Calculated 290 mOsm/kg (285-295); Potassium 3.4 mmol/L (3.5-5.1); Sodium 141 mmol/L (136-145); Total Bilirubin 0.5 mg/dL (0.15-1.2); Total Protein 6.3 g/dL (6.6-8.7)
[2021-04-26 08:02] LABS: Triglycerides 132 mg/dL (0-150)
[2021-04-26] MEDS: pantoprazole 40 mg SDV IVP (09:08)
[2021-04-26] MEDS: lisinopril 20 mg Tablet 40 MG PO (09:08)
[2021-04-26] MEDS: ketorolac 30 mg/mL INJ 15 MG IVP (11:09)
[2021-04-26] MEDS: acetaminophen 325 mg Tablet 650 MG PO (11:10)
--- NOTE | 2021-04-26 12:57 | P.PN_ITS ---
Subjective Subjective: Interval history: Patient in significant pain on examination. Asking if the pain medication can be increased. Diaphoretic. Denies any nausea. Tolerating clear liquid diet. Has remained hemodynamically stable and afebrile. Vitals/I&O/Wt Last Vital Signs Temp 99.3 F 04/26/21 12:00 Pulse 78 04/26/21 12:00 Resp 18 04/26/21 12:19 BP 143/75 04/26/21 12:00 Pulse Ox 94 04/26/21 12:00 04/25/21 04/26/21 04/26/21 22:59 06:59 14:59 Intake Total 120 / 1120 0 / 0 Output Total 340 / 340 Balance -220 / 780 0 / 0 Weight last 48 hrs Weight 79.379 kg Weight 79.379 kg Physical Exam Narrative: EXAM NARRATIVE: General: AO x3, patient is visibly uncomfortable due to abdominal pain at the time of exam HEENT: PERRLA, pupils bilaterally equal and reactive, pallors not present Chest: Normal vesicular breath sounds, no added sounds, equal good air entry bilaterally CVS: S1-S2 regular, no murmurs, no tachycardia, no gallops, no rubs Abdomen: Soft, nondistended, discomfort to palpation in the midepigastric region Neuro: No focal deficits, no facial deformity, AO x3, power 5/5 in all limbs Data : 04/26/21 06:29 04/26/21 06:29 A&P Assessment and plan (1) Acute pancreatitis: Patient presenting today with severe abdominal pain, associated nausea poor p.o. intake Elevated lipase and CT with evidence of acute pancreatitis. Advance gradually clear liquid diet. Will do very slow gradual advance depending on how he tolerates the diet. Switch fluids to D5 half NS with 20 mEq potassium at 75 cc/h. Pain control with IV Dilaudid and IV Toradol. Increase Dilaudid to 2 mg every 4 hours as needed. Noted leukocytosis with WBC count at 22, suspect this to be related to acute inflammation and dehydration. No current signs of necrotizing pancreatitis or pancreatic abscess on CT. Hold off on antibiotics as no current signs of secondary infection at this time. Monitor WBC count closely with hydration. CT abdomen without any biliary dilation or evidence of stones. LFT within range. Noted to have mild hypertriglyceridemia on admission though cannot be a driving factor for pancreatitis as less than 500. Has resolved now. Zofran as needed. Protonix 40 mg IV daily. If patient continues to have significant abdominal pain and elevated lipase tomorrow we will plan for repeat CT abdomen pelvis to rule out pancreatic abscess Status: Acute Qualifiers: Acute pancreatitis complication: no infection or necrosis Pancreatitis type: unspecified pancreatitis type Qualified Code(s): K85.90 - Acute pancreatitis without necrosis or infection, unspecified Additional A&P Information Hypertension: Continue home dose of lisinopril DVT prophylaxis: Lovenox Full code Clear liquid diet. Attestations Medical Necessity Statement*: Requires further hospitalization for pain control and advancement of diet for severe acute pancreatitis. Time Spent in Patient Care: Greater than 35 minutes (>than 50% of time spent in counselling and/or direct pt care on unit) . Coding Level of Care Code Acute Director Search Marketing Strategies for [facility] Diagnoses Acute pancreatitis K85.90 Acute pancreatitis complication: no infection or necrosis Pancreatitis type: unspecified pancreatitis type
[2021-04-26] MEDS: D5-NS 0.45% + KCL 20 mEq 20 MEQ/1,000 ML BAG 75 MEQ IV (13:29)
[2021-04-26] MEDS: HYDROmorphone 1 mg/mL INJ 1 mL 2 MG IVP ×2 (16:32→21:01)
[2021-04-26] MEDS: enoxaparin 40 mg/0.4 mL Syringe SUBCUT (21:00)
[2021-04-27] VITALS (14 sets, daily range): BP systolic 125–143; BP diastolic 74–83; PULSE 62–76; RESP 16–18; TEMP 36.9–37.4; O2SAT 92–98
[2021-04-27] MEDS: HYDROmorphone 1 mg/mL INJ 1 mL 2 MG IVP ×3 (01:09→10:04)
[2021-04-27] MEDS: D5-NS 0.45% + KCL 20 mEq 20 MEQ/1,000 ML BAG 75 MEQ IV ×2 (01:55→16:02)
[2021-04-27] MEDS: ketorolac 30 mg/mL INJ 15 MG IVP ×2 (04:13→16:00)
[2021-04-27 07:09] LABS: Basophils # 0.1 10^3/uL (0.0-0.1); Basophils % 0.3 %; Eosinophils # 0.1 10^3/uL (0.0-0.8); Eosinophils % 0.6 %; Hematocrit 35.2 % (42.0-52.0); Lymphocytes # 1.5 10^3/uL (0.8-4.8); Lymphocytes % 9.8 %; Mean Corpuscular HGB Conc 34.1 g/dL (30.0-36.0); Mean Corpuscular Hemoglobin 34.5 pg (28.0-34.0); Mean Corpuscular Volume 101.1 fl (80-94); Mean Platelet Volume 10.6 fL (7.4-10.4); Monocytes # 1.5 10^3/uL (0.2-0.9); Monocytes % 9.6 %; Neutrophils # 12.48 10^3/uL (1.8-7.7); Neutrophils % 79.3 %; Nucleated Red Blood Cells % 0 %; Platelet Count 243 10^3/cmm (130-400); Red Blood Count 3.48 10^6/uL (4.1-5.3); Red Cell Distribution Width 14.9 % (12.1-15.1); White Blood Count 15.8 10^3/uL (4.0-10.0)
[2021-04-27 07:38] LABS: Alanine Aminotransferase 10 U/L (0-41); Albumin Level 3.4 g/dL (3.5-5.2); Alkaline Phosphatase 66 IU/L (40-130); Anion Gap 13.5 (5-19); Aspartate Amino Transferase 14 U/L (0-40); Blood Urea Nitrogen 6 mg/dL (8-23); Carbon Dioxide 23 mmol/L (22-29); Chloride 103 mmol/L (98-107); Creatinine Clr Calc Pharmacy 170.9591; Globulin 2.4 g/dL (1.3-4.6); Glomerular Filtration Rate 169.6 mL/min (90-130); Glucose 107 mg/dL (65-115); Lipase 57 U/L (13-60); Osmolality Calculated 280 mOsm/kg (285-295); Potassium 3.5 mmol/L (3.5-5.1); Sodium 136 mmol/L (136-145); Total Bilirubin 0.5 mg/dL (0.15-1.2); Total Protein 5.8 g/dL (6.6-8.7)
[2021-04-27] MEDS: lisinopril 20 mg Tablet 40 MG PO (08:09)
[2021-04-27] MEDS: pantoprazole 40 mg SDV IVP (08:10)
[2021-04-27] MEDS: ondansetron 2 mg/ML SDV 2 mL 4 MG IVP (08:13)
--- NOTE | 2021-04-27 12:15 | PM.PN ---
Subjective Subjective: Interval history: He states he is feeling better today. Scared to eat because that will cause him to have abdominal pain. No vomiting. Walking around in the hallway today. Denies any diarrhea. Has not had any bowel movement since admission. We discussed the need for ambulation to prevent from ileus. Patient verbalized understanding. Vitals/I&O/Wt Last Vital Signs Temp 98.5 F 04/27/21 11:09 Pulse 65 04/27/21 11:09 Resp 16 04/27/21 11:09 BP 132/77 04/27/21 11:09 Pulse Ox 93 04/27/21 11:09 04/26/21 04/27/21 04/27/21 22:59 06:59 14:59 Intake Total 120 / 1260 1132.5 / 2392.5 Output Total 0 / 0 350 / 350 Balance 120 / 1260 782.5 / 2042.5 Weight last 48 hrs Weight 79.379 kg Physical Exam Narrative: EXAM NARRATIVE: General: AO x3, patient is visibly uncomfortable due to abdominal pain at the time of exam HEENT: PERRLA, pupils bilaterally equal and reactive, pallors not present Chest: Normal vesicular breath sounds, no added sounds, equal good air entry bilaterally CVS: S1-S2 regular, no murmurs, no tachycardia, no gallops, no rubs Abdomen: Soft, nondistended, discomfort to palpation in the midepigastric region Neuro: No focal deficits, no facial deformity, AO x3, power 5/5 in all limbs Data : 04/27/21 06:10 04/27/21 06:10 A&P Assessment and plan (1) Acute pancreatitis: Patient presenting today with severe abdominal pain, associated nausea poor p.o. intake Elevated lipase and CT with evidence of acute pancreatitis. Advance gradually clear liquid diet. Will do very slow gradual advance depending on how he tolerates the diet. Continue with D5 half NS with 20 mEq potassium at 75 cc/h. Pain control with IV Dilaudid and IV Toradol. Noted leukocytosis with WBC count at 22, suspect this to be related to acute inflammation and dehydration. No current signs of necrotizing pancreatitis or pancreatic abscess on CT. Hold off on antibiotics as no current signs of secondary infection at this time. Monitor WBC count closely with hydration. CT abdomen without any biliary dilation or evidence of stones. LFT within range. Noted to have mild hypertriglyceridemia on admission though cannot be a driving factor for pancreatitis as less than 500. Has resolved now. Zofran as needed. Protonix 40 mg IV daily. If patient continues to have significant abdominal pain and elevated lipase tomorrow we will plan for repeat CT abdomen pelvis to rule out pancreatic abscess Status: Acute Qualifiers: Acute pancreatitis complication: no infection or necrosis Pancreatitis type: unspecified pancreatitis type Qualified Code(s): K85.90 - Acute pancreatitis without necrosis or infection, unspecified Additional A&P Information Hypertension: Continue home dose of lisinopril DVT prophylaxis: Lovenox Full code Full liquid diet. Attestations Medical Necessity Statement*: Requires further hospitalization for management of acute pancreatitis, pain control, poor oral intake as patient is still requiring IV pain medications Time Spent in Patient Care: Greater than 35 minutes (>than 50% of time spent in counselling and/or direct pt care on unit). Coding Level of Care Code Acute Precision Lens Technician for [facility] Diagnoses Acute pancreatitis K85.90 Acute pancreatitis complication: no infection or necrosis Pancreatitis type: unspecified pancreatitis type
[2021-04-27] MEDS: HYDROmorphone 1 mg/mL INJ 1 mL IVP ×3 (14:26→23:05)
[2021-04-27] MEDS: acetaminophen 325 mg Tablet 650 MG PO ×2 (16:01→22:10)
[2021-04-27] MEDS: enoxaparin 40 mg/0.4 mL Syringe SUBCUT (21:15)
[2021-04-28] VITALS: BP 128/69; PULSE 67; RESP 17; TEMP 36.9; O2SAT 92
--- NOTE | 2021-04-28 03:17 | PC.NURSE ---
PT REQUESTING PRN PAIN MEDICATION FOR ABD PAIN. THIS NURSE OFFERED TORADOL, BUT PT REQUESTING DILAUDID. EDUCATED PT ON EACH MEDICATION AND THE TIMING OF TORADOL BEING THE PAIN MEDICATION HE SHOULD TAKE TO RELIVED HIS DESCRIPTION OF PAIN, BUT PT CONTINUES TO REQUEST DILAUDID.
[2021-04-28 03:28] VITALS: RESP 16
[2021-04-28] MEDS: HYDROmorphone 1 mg/mL INJ 1 mL IVP (03:28)
[2021-04-28] MEDS: D5-NS 0.45% + KCL 20 mEq 20 MEQ/1,000 ML BAG 75 MEQ IV (03:28)
[2021-04-28 04:00] VITALS: BP 126/72; PULSE 68; RESP 17; TEMP 37.4; O2SAT 92
[2021-04-28] MEDS: ketorolac 30 mg/mL INJ 15 MG IVP (06:03)
[2021-04-28 06:40] LABS: Basophils # 0.1 10^3/uL (0.0-0.1); Basophils % 0.4 %; Eosinophils # 0.1 10^3/uL (0.0-0.8); Eosinophils % 0.9 %; Hematocrit 34.4 % (42.0-52.0); Hemoglobin 11.9 g/dL (11.7-16.6); Lymphocytes % 14.3 %; Mean Corpuscular HGB Conc 34.6 g/dL (30.0-36.0); Mean Corpuscular Hemoglobin 34.2 pg (28.0-34.0); Mean Corpuscular Volume 98.9 fl (80-94); Mean Platelet Volume 10.9 fL (7.4-10.4); Monocytes # 1.3 10^3/uL (0.2-0.9); Monocytes % 9.4 %; Neutrophils # 10.29 10^3/uL (1.8-7.7); Neutrophils % 74.6 %; Nucleated Red Blood Cells % 0 %; Platelet Count 235 10^3/cmm (130-400); Red Blood Count 3.48 10^6/uL (4.1-5.3); Red Cell Distribution Width 14.6 % (12.1-15.1); White Blood Count 13.8 10^3/uL (4.0-10.0)
[2021-04-28 07:07] LABS: Alanine Aminotransferase 12 U/L (0-41); Albumin Level 3.5 g/dL (3.5-5.2); Alkaline Phosphatase 59 IU/L (40-130); Blood Urea Nitrogen 6 mg/dL (8-23); Calcium 8.2 mg/dL (8.5-10.5); Carbon Dioxide 23 mmol/L (22-29); Chloride 104 mmol/L (98-107); Globulin 2.7 g/dL (1.3-4.6); Glomerular Filtration Rate 169.6 mL/min (90-130); Glucose 98 mg/dL (65-115); Osmolality Calculated 286 mOsm/kg (285-295); Sodium 139 mmol/L (136-145); Total Bilirubin 0.5 mg/dL (0.15-1.2); Total Protein 6.2 g/dL (6.6-8.7)
[2021-04-28 07:12] LABS: Creatinine Clr Calc Pharmacy 170.9591
[2021-04-28 07:14] LABS: Anion Gap 15.7 (5-19); Aspartate Amino Transferase 20 U/L (0-40); Potassium 3.7 mmol/L (3.5-5.1)
[2021-04-28 08:00] VITALS: BP 133/77; PULSE 61; RESP 17; TEMP 36.8; O2SAT 96
[2021-04-28 08:26] VITALS: PULSE 63; O2SAT 93
[2021-04-28] MEDS: lisinopril 20 mg Tablet 40 MG PO (08:56)
[2021-04-28] MEDS: pantoprazole 40 mg SDV IVP (08:57)
[2021-04-28] MEDS: acetaminophen 325 mg Tablet 650 MG PO (09:00)
--- NOTE | 2021-04-28 10:46 | PC.SOCIAL ---
IMM IMM sign dated and given to patient, verbalizes understanding
--- NOTE | 2021-04-28 10:51 | PC.SOCIAL ---
IMM IMM dated and signed and given to patient. Patient verbalized understanding
--- NOTE | 2021-04-28 12:14 | P.DS_ITS ---
Discharge Providers Date of Admission: 04/25/21 12:03 Date of Discharge: April 28, 2021 Attending Provider at Admission: Alicia Herrera MD Attending Provider at Discharge: Jason Pavon Primary Care Provider: REANNA Gould Diagnoses at Discharge Discharge Diagnosis (1) Acute pancreatitis: Status: Acute Qualifiers: Acute pancreatitis complication: no infection or necrosis Pancreatitis type: unspecified pancreatitis type Qualified Code(s): K85.90 - Acute pancreatitis without necrosis or infection, unspecified Reason for Visit Reason for Visit: CHEST PAIN Hospital Course Hospital Course Pleasant 60-year-old gentleman was admitted for assessment management of acute pancreatitis after presenting with abdominal pain, with noted acute interstitial edematous pancreatitis, with lipase elevation 3781. He was noted to have normal liver, normal gallbladder and no biliary duct dilation on CT scan. All liver parameters remain normal. He denies drinking alcohol recently. Triglycerides were checked and were mildly elevated initially 429, on recheck 132. Thought not likely causing the pancreatitis. He reports he no longer smokes. He does not appear to be taking medications that should cause pancreatitis. As such she does not appear to have a convincing cause identified for the pancreatitis. Today he is feeling much better, pain is almost gone. He is eating full liquids. He wants to go home. Discussed with him that we will refer him for additional assessment by right quadrant ultrasound. In case otherwise still no convincing cause identified, please consider her for additional assessment with MRCP, follow-up with GI specialist, especially in case of recurrence. Physical Exam Const: COMMON NORMALS: no acute distress and patient oriented x3 HENMT: COMMON NORMALS: oropharynx normal Neck/C-Spine: COMMON NORMALS: no JVD Resp: COMMON NORMALS: normal respiratory effort and clear to auscultation bilaterally AUSCULTATION: clear to auscultation bilaterally Cardio: COMMON NORMALS: no JVD, regular rhythm, S1 normal heart sound present, S2 normal heart sound present and No murmurs present (Cardio) RHYTHM: regular rhythm HEART SOUNDS: S1 normal heart sound present and S2 normal heart sound present GI: COMMON NORMALS: Normal to inspection, nondistended, normoactive bowel sounds present, Soft to palpation and non-tender PALPATION: Yes Soft to palpation Extremity: COMMON NORMALS: no joint enlargement and no pedal edema Neuro: COMMON NORMALS: patient oriented x3 and moves all extremities Skin: COMMON NORMALS: no rashes or lesions noted GENERAL SKIN EXAM: no rashes or lesions noted Discharge Data Data Completed and Pending: Completed Studies During Hospitalization Category Date Time Status CT angio chest ab domen Urgent Cat Scan 04/24/21 17:05 Completed XR chest 1V lina ble 13178 Stat Exams 04/24/21 16:59 Completed Labs from last 24 hours 04/28/21 04/28/21 05:49 05:49 WBC 13.8 H RBC 3.48 L Hgb 11.9 Hct 34.4 L MCV 98.9 H MCH 34.2 H MCHC 34.6 RDW 14.6 Plt Count 235 MPV 10.9 H Neut % (Auto) 74.6 Lymph % (Auto) 14.3 [place] % (Auto) 9.4 Eos % (Auto) 0.9 Baso % (Auto) 0.4 Neut # (Auto) 10.29 H Lymph # (Auto) 2.0 [place] # (Auto) 1.3 H Eos # (Auto) 0.1 Baso # (Auto) 0.1 Nucleated RBC % (a uto) 0 Nucleated RBCs # 0.0 Sodium 139 Potassium 3.7 Chloride 104 Carbon Dioxide 23 Anion Gap 15.7 BUN 6 L Creatinine 0.5 L GFR Calculation 169.6 H Glucose 98 Calculated Osmolal ity 286 Calcium 8.2 L Total Bilirubin 0.5 AST 20 ALT 12 Alkaline Phosphata se 59 Total Protein 6.2 L Albumin 3.5 Globulin 2.7 Vitals: Last Vital Signs Temp 98.3 F 04/28/21 08:00 Pulse 63 04/28/21 08:26 Resp 17 04/28/21 08:00 BP 133/77 04/28/21 08:00 Pulse Ox 93 04/28/21 08:26 Discharge Plan Discharge Patient Disposition: Home Condition: Stable Prescriptions: Continued Excedrin Migraine 250-250-65 mg Tablet 1 tab PO Q4H PRN (Reason: Headache) RF: 0 Fish Oil 1 cap PO QAM RF: 0 lisinopril 40 mg tablet 40 mg PO QAM RF: 0 Discharge Orders: Discharge Order (Routine); Ordered 04/28/21 Ordered By: Jason Pavon Referrals: Yesenia Esteves FNP-C [Primary Care Provider] - 09/17/21 10:00 am Discharge Diet: Advance as tolerated Discharge Activity: Increase activity as tolerated Patient Instructions: Pancreatitis (GEN) Activity Restrictions/Additional Instructions: Abstain from any alcohol and avoid smoking as you have been. Please complete gallbladder ultrasound and follow-up with your primary doctor. Discussed regarding other less common causes of pancreatitis as we have not iden tified a convincing cause. Discussed consideration of referral for MRCP, discussed referral and follow-up with gastroenterology specialist. Discharge Attestations Time Spent in Discharge Care*: greater than 30 min Quality Metrics Clinical Quality Measures During this hospital stay, did patient experience: None Coding Level of Care Code Acute g DC note Diagnoses Acute pancreatitis K85.90 Acute pancreatitis complication: no infection or necrosis Pancreatitis type: unspecified pancreatitis type
[2021-04-28 15:35] VITALS: PULSE 63; O2SAT 93
--- NOTE | 2021-04-29 10:04 | PC.SOCIAL ---
discharge follow up call made. patient reports he is feeling better. is aware of follow up appointment with PCP. patient denies any questions or concerns.
== END 2021-04-28 13:00 | disposition home or self-care (01) | DRG 439 ==
LOC: ER 04-25 07:35 → MEDSURG 04-25 12:04
PROVIDERS: Student in an Organized Health Care Education/Training Program; Admitting Provider Student in an Organized Health Care Education/Training Program; Emergency Provider Emergency Medicine; PCP Nurse Practitioner Family; Visit Provider Internal Medicine
DX: K85.90 Acute pancreatitis without necrosis or infection, unspecified (principal); Q25.43 Congenital aneurysm of aorta; I10 Essential (primary) hypertension; Z87.891 Personal history of nicotine dependence
CPT/HCPCS: 36415; 71045; 71275; 74175; 80053; 80307; 83690; 83721; 83735; 84478; 84484; 85025; 93005; 96361; 96372; 96374; 96375; 96376; 99285; C9113; J1170; J1650; J1885; J2270; J2405; J3010; J3490; J7030; Q9967

== ENCOUNTER → 2021-05-02 09:58 | Outpatient (BNVA) | payer MEDICARE, SELFPAY | PROVIDERS: PCP Nurse Practitioner Family; Visit Provider Nurse Practitioner Family | DX: K85.90 Acute pancreatitis without necrosis or infection, unspecified (principal); R11.0 Nausea; I77.819 Aortic ectasia, unspecified site | CPT/HCPCS: 80053; 82150; 83690; 84478; 85025 ==

== ENCOUNTER 2021-05-05 08:07 | Outpatient (CLI) | payer MEDICARE, SELFPAY ==
--- NOTE | 2021-05-05 08:00 | US_ITS ---
WS: [id number] ULTRASOUND ABDOMEN LIMITED CLINICAL INFORMATION: K85.90 - Acute pancreatitis without necrosis or infection... COMPARISON: None. FINDINGS: Liver Size: Normal. Craniocaudal length: 14.7 cm. Echogenicity: Normal. Surface nodularity: None. Mass (size and location): None. Bile ducts Intrahepatic ducts: Normal. Common bile duct diameter: 0.4 cm. Gallbladder Normal. Gallstones: None. Gallbladder sludge: None. Gallbladder wall thickening: None. Pericholecystic fluid: None. Sonographic Licea sign: Absent. Pancreas Heterogeneous echotexture Right kidney: Normal. Hydronephrosis: None. Size: 10.1 cm x 5.7 cm x 5.0 cm. Abdominal aorta and IVC Visualized portions are normal. Ascites: None. US/US abdomen limited 17513 IMPRESSION: 1. Heterogeneous pancreatic echotexture compatible with known pancreatitis. No drainable fluid collections. 2. Normal liver and gallbladder. 3. No Hydronephrosis in right kidney.
== END 2021-05-05 08:08 | disposition home or self-care (01) ==
PROVIDERS: PCP Nurse Practitioner Family; Visit Provider Nurse Practitioner Family
DX: K85.90 Acute pancreatitis without necrosis or infection, unspecified (principal); R10.10 Upper abdominal pain, unspecified; R11.0 Nausea
CPT/HCPCS: 76705

== ENCOUNTER 2021-05-14 08:11 | Outpatient (CLI) | payer MEDICARE, SELFPAY ==
--- NOTE | 2021-05-14 08:14 | MR_ITS ---
WS: [id number] MRCP (MAGNETIC RESONANCE CHOLANGIOPANCREATOGRAPHY) HISTORY: K85.90 - Acute pancreatitis without necrosis or infection... COMPARISON: Abdomen ultrasound 05/05/[address] 04/24/2021 TECHNIQUE: Multiple sequences are performed to evaluate the intra and extrahepatic ducts. Normally distended gallbladder. No filling defects within the gallbladder. No adjacent fluid or colle ction. Cystic duct and the common bile duct are normal caliber. Common bile duct measures 4.4 mm. Lob ulated cystic mass measures 11 x 14 mm near the junction of the pancreatic head and body. There is an associated calcification. This is inseparable from the pancreatic duct. No solid component. No edema or fluid collection around the pancreas. No ascites. MR/MR MRCP [id number] IMPRESSION: 1. Normal common bile duct. No dilatation or filling defect. 2. Lobulated cystic mass within the pancreas measures 11 x 14 mm. No solid com ponent. There are associated calcifications within this cyst, may be sequela of prior pancreatitis or an IPMN. 3. No peripancreatic fluid or abscess.
== END 2021-05-14 08:12 | disposition home or self-care (01) ==
LOC: RADSHAW 08:13
PROVIDERS: PCP Nurse Practitioner Family; Visit Provider Nurse Practitioner Family
DX: K85.90 Acute pancreatitis without necrosis or infection, unspecified (principal)
CPT/HCPCS: 74181; 80053; 82150; 83690; 84478; 85025

== ENCOUNTER → 2021-06-10 08:30 | Outpatient (BNVA) | payer MEDICARE, SELFPAY | PROVIDERS: PCP Nurse Practitioner Family; Visit Provider Internal Medicine Gastroenterology | DX: K85.90 Acute pancreatitis without necrosis or infection, unspecified (principal); K86.1 Other chronic pancreatitis | CPT/HCPCS: 80048; 80076; 82150; 82378; 82784; 83690; 85025; 86140; 86301 ==

== ENCOUNTER → 2021-06-12 08:53 | Outpatient (BNVA) | payer MEDICARE, SELFPAY | PROVIDERS: PCP Nurse Practitioner Family; Visit Provider Internal Medicine Gastroenterology | DX: K85.90 Acute pancreatitis without necrosis or infection, unspecified (principal); K86.1 Other chronic pancreatitis | CPT/HCPCS: 83520 ==

== ENCOUNTER 2021-06-25 14:58 | Outpatient (CLI) | payer MEDICARE, SELFPAY ==
--- NOTE | 2021-06-25 15:02 | USCV_ITS ---
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 Technologist: Dori Early [place] [facility] [place]: AORTIC ECTASIA BP: 125 / 72 HR: 72 Rhythm: Sinus Technical Quality: Adequate MEASUREMENTS (Male / Female) Normal Values 2D ECHO LV Diastolic Diameter PLAX 5.0 cm 4.2 - 5.9 / 3.9 - 5.3 cm LV Systolic Diameter PLAX 3.1 cm LV Chamber Size 3.6 cm IVS Diastolic Thickness 1.0 cm 0.6 - 1.0 / 0.6 - 0.9 cm IVS Systolic Thickness 1.9 cm LVPW Diastolic Thickness 1.1 cm 0.6 - 1.0 / 0.6 - 0.9 cm LVPW Systolic Thickness 1.7 cm RV Chamber Size 3.6 cm LVOT Diameter 2.0 cm LV Ejection Fraction 2D Teich 66.9 % LV Ejection Fraction MOD 2C 59.3 % LV Ejection Fraction 2C AL 60.5 % LA Diameter 2.6 cm LA Width 2.9 cm LA Height 3.6 cm RA Width 2.2 cm RA Height 2.6 cm Aorta at Sinotubular Diameter 4.2 cm M-MODE LV Diastolic Diameter MM 4.2 cm 4.2 - 5.9 / 3.9 - 5.3 cm LV Systolic Diameter MM 2.9 cm LV Ejection Fraction MM Teich 57.6 % IVS Diastolic Thickness MM 0.9 cm 0.6 - 1.0 / 0.6 - 0.9 cm IVS Systolic Thickness MM 1.3 cm LVPW Diastolic Thickness MM 1.2 cm 0.6 - 1.0 / 0.6 - 0.9 cm LVPW Systolic Thickness MM 2.1 cm RV Diastolic Diameter MM 1.2 cm Aortic Annulus Diameter 5.1 cm LA Ao Ratio MM 0.5 MV E Point Septal Separation 0.2 cm DOPPLER AV Peak Velocity 120.0 cm/s LVOT Peak Velocity 80.0 cm/s AV Area Cont Eq vti 2.2 cm squared AV Area Cont Eq pk 2.1 cm squared MV Area PHT 3.3 cm squared Mitral E to A Ratio 1.0 MV E' Velocity 45.0 cm/s Mitral E to MV E' Ratio 5.8 Mitral E to LV E' Lateral Ratio 4.3 Mitral E to LV E' Septal Ratio 8.6 TR Peak Velocity 224.1 cm/s TR Peak Gradient 20.1 mmHg TR Mean Velocity 186.3 cm/s TR Mean Gradient 14.6 mmHg TR Velocity Time Integral 76.8 cm TV Peak E Velocity 69.0 cm/s Right Atrial Pressure 3.0 mmHg Pulmonary Artery Systolic Pressu 23.1 mmHg PV Peak Velocity 59.0 cm/s RV Acceleration Time 0.2 s RV Ejection Time 0.4 s RV AcT/ET 0.6 FINDINGS Left Ventricle Normal left ventricular size and systolic function, EF 58 %. Relative hypokinesia of the septum. Right Ventricle The right ventricle is normal in size and function. Right Atrium The right atrium is normal in size. Left Atrium The left atrium is normal in size. Mitral Valve Trace to mild mitral valve regurgitation. Aortic Valve Trace aortic valve regurgitation. Tricuspid Valve Mild tricuspid valve regurgitation. Pulmonic Valve No gross abnormalities noted Pericardium Normal pericardium without effusion. Aorta Aortic root at the level of the sinuses measured at 4.9 cm in diameter. Ascending aorta measured 4.0 cm CONCLUSIONS Normal left ventricular size and systolic function, EF 58 %. Relative hypokinesia of the septum. Trace to mild mitral valve regurgitation. Trace aortic valve regurgitation. Mild tricuspid valve regurgitation. Pulmonary artery peak systolic pressure was 23 mmHg There is no pericardial effusion. There are no intracardiac masses. Dilated aortic root measuring 4.9 cm at the level of the sinuses and 4.0 cm at the ascending aorta. No similar previous studies are available for comparison Dr Wicho Lopez MD LOCATED WITHIN [facility] (Electronically Signed) Final Date: 25 June 2021 20:38 S
== END 2021-06-25 14:59 | disposition home or self-care (01) ==
LOC: RAD 14:59
PROVIDERS: PCP Nurse Practitioner Family; Visit Provider Nurse Practitioner Family
DX: I77.819 Aortic ectasia, unspecified site (principal); K85.90 Acute pancreatitis without necrosis or infection, unspecified; I08.3 Combined rheumatic disorders of mitral, aortic and tricuspid valves
CPT/HCPCS: 93306

== ENCOUNTER → 2021-09-15 10:42 | Outpatient (BNVA) | payer MEDICARE, SELFPAY | PROVIDERS: PCP Nurse Practitioner Family; Visit Provider Nurse Practitioner Family | DX: I10 Essential (primary) hypertension (principal); E78.1 Pure hyperglyceridemia | CPT/HCPCS: 80053; 80061; 84443; 85025 ==

== ENCOUNTER 2022-02-23 11:41 | Outpatient (CLI) | payer MEDICARE, SELFPAY ==
--- NOTE | 2022-02-23 13:00 | USCV_ITS ---
Rickey Herman Age: 61 Gender: M : 1960 Exam Date: 02/23/2022 12:24 Ordering Phys: Jose Stafford MD (Andy) ([email or web address]) Technologist: Christopher Kilpatrick Exam Location: [facility] – [place] Indication: dialated aortic root BP: 120 / 74 HR: 69 Rhythm: Sinus Technical Quality: Adequate MEASUREMENTS (Male / Female) Normal Values 2D ECHO LV Diastolic Diameter PLAX 4.9 cm 4.2 - 5.9 / 3.9 - 5.3 cm LV Systolic Diameter PLAX 2.9 cm IVS Diastolic Thickness 1.4 cm 0.6 - 1.0 / 0.6 - 0.9 cm IVS Systolic Thickness 1.7 cm LVPW Diastolic Thickness 1.2 cm 0.6 - 1.0 / 0.6 - 0.9 cm LVPW Systolic Thickness 1.4 cm LVOT Diameter 2.0 cm LV Ejection Fraction 2D Teich 72.0 % LV Ejection Fraction MOD 2C 73.4 % LV Ejection Fraction 2C AL 74.3 % LA Diameter 3.0 cm Aorta at Sinotubular Diameter 3.8 cm IVC Diameter 1.4 cm M-MODE LV Diastolic Diameter MM 5.6 cm 4.2 - 5.9 / 3.9 - 5.3 cm LV Systolic Diameter MM 3.5 cm LV Ejection Fraction MM Teich 66.4 % IVS Diastolic Thickness MM 1.1 cm 0.6 - 1.0 / 0.6 - 0.9 cm IVS Systolic Thickness MM 1.8 cm LVPW Diastolic Thickness MM 1.3 cm 0.6 - 1.0 / 0.6 - 0.9 cm LVPW Systolic Thickness MM 2.0 cm RV Diastolic Diameter MM 1.8 cm Aortic Annulus Diameter 4.7 cm LA Ao Ratio MM 0.6 MV E Point Septal Separation 1.0 cm DOPPLER AV Peak Velocity 119.0 cm/s LVOT Peak Velocity 109.0 cm/s AV Area Cont Eq vti 2.4 cm squared AV Area Cont Eq pk 3.0 cm squared MV Area PHT 5.0 cm squared Mitral E to A Ratio 1.0 MV E' Velocity 48.5 cm/s Mitral E to MV E' Ratio 5.8 Mitral E to LV E' Lateral Ratio 5.8 Mitral E to LV E' Septal Ratio 5.9 TR Peak Velocity 191.7 cm/s TR Peak Gradient 14.7 mmHg Right Atrial Pressure 3.0 mmHg Pulmonary Artery Systolic Pressu 17.7 mmHg PV Peak Velocity 114.0 cm/s FINDINGS Left Ventricle Normal left ventricular size, systolic function and wall thickness, with no regional wall motion abnormalities. Normal left ventricular wall thickness. Normal diastolic filling pattern. Right Ventricle The right ventricle is normal in size and function. Right Atrium The right atrium is normal in size. Left Atrium The left atrium is normal in size. Mitral Valve Trace mitral valve regurgitation. Aortic Valve No gross abnormalities noted Tricuspid Valve Mild tricuspid valve regurgitation. Estimated pulmonary artery peak systolic pressure 18 mmHg Pulmonic Valve No gross abnormalities noted Pericardium Normal pericardium without effusion. Aorta Dilated aortic root measuring 4.95 cm at the level of the sinuses, 3.8 cm at the level of the isthmus and 3.6 cm at the level of the ascending aorta. IVC Normal inferior vena cava. CONCLUSIONS Normal left ventricular size, systolic function and wall thickness, with no regional wall motion abnormalities. Normal left ventricular wall thickness. Normal diastolic filling pattern. Mild tricuspid valve regurgitation. Estimated pulmonary artery peak systolic pressure 18 mmHg. Dilated aortic root measuring 4.95 cm at the level of the sinuses, 3.8 cm at the level of the isthmus and 3.6 cm at the level of the ascending aorta. No intracardiac masses. No pericardial effusion. Compared to the study from 06/25/2021, there may not be a significant change Dr Wicho Lopez MD [facility] (Electronically Signed) Final Date: 25 February 2022 08:41 S
== END 2022-02-23 11:42 | disposition home or self-care (01) ==
LOC: RAD 11:42
PROVIDERS: PCP Nurse Practitioner Family; Visit Provider Thoracic Surgery (Cardiothoracic Vascular Surgery)
DX: I35.1 Nonrheumatic aortic (valve) insufficiency (principal); I77.810 Thoracic aortic ectasia
CPT/HCPCS: 93306; 93978

== ENCOUNTER 2022-02-23 11:41 | Outpatient (CLI) | payer MEDICARE, SELFPAY ==
--- NOTE | 2022-02-23 12:00 | USCV_ITS ---
Batsheva Rickey Age: 61 Gender: M : 1960 Exam Date: 02/23/2022 12:38 Ordering Phys: Jose Stafford MD (Andy) ([email or web address] [email or web address]) Technologist: Christopher Kilpatrick [place] [facility] [place]: screening hx of thorastic aaa HISTORY: Diameter (cm) AP x Transverse x Length Velocity (cm/s) Waveform Prox Aorta: 2.62 x 2.81 x 55.00 Mid Aorta: 1.77 x 2.10 x 42.80 Distal Aorta: 1.64 x 1.82 x 43.70 Right Iliac Prox: 1.00 x 1.01 x 163.30 Left Iliac Prox: 0.98 x 1.07 x 82.30 Stent Prox Landing x x Aneurysmal Sac Max x x Lt Lat Sac Dim Rt Lat Sac Dim Stent Dist Landing x x Right Iliac Stent x x Left Iliac Stent x x Right Renal Art Left Renal Art FINDINGS: Mild to moderate diffuse plaques in the abdominal aorta Somewhat ectatic proximal abdominal aorta elevated velocity in the right proximal iliac artery Normal proximal common iliac artery dimensions CONCLUSIONS 1. 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 2. Normal proximal common iliac artery dimensions. 3. Elevated velocity in the right proximal common iliac artery, could be related to tortuosity. Hemodynamically significant stenosis cannot be excluded. Consider CTA, if clinically indicated Dr Wicho Lopez MD FAC (Electronically Signed) Final Date: 25 February 2022 09:18 S
== END 2022-02-23 11:42 | disposition home or self-care (01) ==
LOC: RAD 11:42
PROVIDERS: PCP Nurse Practitioner Family; Visit Provider Thoracic Surgery (Cardiothoracic Vascular Surgery)
DX: I77.810 Thoracic aortic ectasia (principal)
CPT/HCPCS: 93978

== ENCOUNTER → 2022-03-05 11:17 | Outpatient (BNVA) | payer MEDICARE, SELFPAY | PROVIDERS: PCP Nurse Practitioner Family; Visit Provider Thoracic Surgery (Cardiothoracic Vascular Surgery) | DX: I77.810 Thoracic aortic ectasia (principal) | CPT/HCPCS: 99213 ==

== ENCOUNTER 2022-08-18 09:48 | Outpatient (CLI) | payer MEDICARE, SELFPAY ==
--- NOTE | 2022-08-18 10:00 | CT_ITS ---
WS: [id number] CTA THORACIC TECHNIQUE: Contrast enhanced CTA of the thoracic aorta with coronal and sagittal reformatted images a nd maximum intensity projection (MIP) images. CLINICAL INFORMATION: Ascending aorta dilation COMPARISON: CTA March 24, 2021 DLP: 1138.[address] scans at [facility] use at least one of these dose optimization techniques: automated e xposure control; mA and/or kV adjustment per patient size (includes targeted exams where dose is matc hed to clinical indication); or iterative reconstruction. FINDINGS: Ascending thoracic aortic aneurysm measuring 3.9 cm unchanged from previous.Aortic root dilatation me asures 4.8 cm unchanged. Proximal main pulmonary arteries appear normal. Normal caliber descending th oracic aorta. Adrenal glands are normal. Normal GE junction. Visualized upper abdominal aorta is norm al in caliber. Celiac and SMA are patent. Visualized proximal renal arteries are patent. Mild hypertrophic changes thoracic spine. RIGHT thyroid nodule measuring 9 mm. No mediastinal or latisha r lymphadenopathy. No axillary lymphadenopathy. Adrenal glands are normal.Calcified granuloma LEFT lower lobe. No acute pulmonary infiltrates. No foc al pneumonia or pleural fluid.Proximal main pulmonary arteries are normal. CT/CT angio chest [id number] IMPRESSION: 1. Stable aneurysmal ascending thoracic aorta measuring 3.8 cm. 2. Aortic root dilatation measures 4.4 cm unchanged 3. Normal caliber descending thoracic aorta and upper abdominal aorta. 4. Lungs are well aerated. No acute pulmonary infiltrates. 5. No other suspicious findings.
[2022-08-18 10:21] LABS: Blood Urea Nitrogen 6 mg/dL (8-23); Glomerular Filtration Rate 85.8 mL/min (90-130)
[2022-08-18] MEDS: iohexol 350 mg/mL 500 mL Btl (per mL) IV (10:35)
== END 2022-08-18 09:49 | disposition home or self-care (01) ==
LOC: RAD 09:48
PROVIDERS: PCP Nurse Practitioner Family; Visit Provider Thoracic Surgery (Cardiothoracic Vascular Surgery)
DX: I71.21 Aneurysm of the ascending aorta, without rupture (principal)
CPT/HCPCS: 71275; 82565; 84520; Q9967

== ENCOUNTER → 2022-09-08 09:06 | Outpatient (BNVA) | payer MEDICARE, SELFPAY | PROVIDERS: PCP Nurse Practitioner Family; Visit Provider Nurse Practitioner Family | DX: I10 Essential (primary) hypertension (principal); I77.810 Thoracic aortic ectasia | CPT/HCPCS: 80053; 80061; 84443; 85025 ==

== ENCOUNTER → 2022-10-01 08:10 | Outpatient (BNVA) | payer MEDICARE, SELFPAY | PROVIDERS: PCP Nurse Practitioner Family; Visit Provider Thoracic Surgery (Cardiothoracic Vascular Surgery) | DX: I77.810 Thoracic aortic ectasia (principal) | CPT/HCPCS: 99213 ==

== ENCOUNTER → 2023-03-23 09:10 | Outpatient (BNVA) | payer MEDICARE, SELFPAY | PROVIDERS: PCP Nurse Practitioner Family; Visit Provider Nurse Practitioner Family | DX: I10 Essential (primary) hypertension (principal); R63.4 Abnormal weight loss; Z12.5 Encounter for screening for malignant neoplasm of prostate | CPT/HCPCS: 80053; 80061; 82306; 82607; 83036; 84443; 85025; G0103 ==

== ENCOUNTER → 2023-04-06 08:33 | Outpatient (BNVA) | payer MEDICARE, SELFPAY | PROVIDERS: PCP Nurse Practitioner Family; Visit Provider Nurse Practitioner Family | DX: I10 Essential (primary) hypertension (principal) | CPT/HCPCS: 82607 ==

== ENCOUNTER → 2023-07-16 08:52 | Outpatient (BNVA) | payer MEDICARE, SELFPAY | PROVIDERS: PCP Nurse Practitioner Family; Visit Provider Nurse Practitioner Family | DX: E53.8 Deficiency of other specified B group vitamins (principal) | CPT/HCPCS: 82607 ==

== ENCOUNTER 2023-08-26 07:22 | Outpatient (CLI) | payer MEDICARE, SELFPAY ==
--- NOTE | 2023-08-26 07:30 | US_ITS ---
WS: [id number] ULTRASOUND SOFT TISSUES bilateral neck. HISTORY: R22.0 - Localized swelling, mass and lump, head COMPARISON: None available. TECHNIQUE: 2-D and color Doppler imaging is submitted. Patient indicates the areas of concern which correspond to bilateral submandibular glands. No masses and no enlargement. No edema. Normal cervical chain lymph nodes are also identified. IMPRESSION: Palpable areas correspond to benign bilateral submandibular glands.
== END 2023-08-26 07:23 | disposition home or self-care (01) ==
LOC: RAD 07:23
PROVIDERS: PCP Nurse Practitioner Family; Visit Provider Nurse Practitioner Family
DX: R22.0 Localized swelling, mass and lump, head (principal); R22.1 Localized swelling, mass and lump, neck
CPT/HCPCS: 76536

== ENCOUNTER → 2023-09-07 09:08 | Outpatient (BNVA) | payer MEDICARE, SELFPAY | PROVIDERS: PCP Nurse Practitioner Family; Visit Provider Nurse Practitioner Family | DX: I10 Essential (primary) hypertension (principal) | CPT/HCPCS: 80053; 80061; 84443; 85025 ==

== ENCOUNTER 2023-09-28 08:28 | Outpatient (CLI) | payer MEDICARE, SELFPAY ==
--- NOTE | 2023-09-28 09:00 | CT_ITS ---
WS: [id number] CTA THORACIC AORTA WITH AND WITHOUT CONTRAST HISTORY: aortic root dilation TECHNIQUE: CT imaging of the thorax is performed with and without contrast. After noncontrast imaging is performed, CT angiogram is performed during injection of Omnipaque 350; 100 mL IV.. Sagittal and coronal reconstructions, sagittal and coronal MIP imaging is submitted. All CT scans at [facility] use at least one of these dose optimization techniques: automated exposure control; mA and/or k V adjustment per patient size (includes targeted exams where dose is matched to clinical indication); or iterative reconstruction. DLP: 525.71 mGy.cm COMPARISON: 08/18/2022 and 04/24/2021 Very good opacification of the thoracic aorta. Transverse measurement at the aortic root is 4.2 cm wi thout significant increase in size since the prior study. Sinotubular diameter of 3.2 cm. Ascending a tabby at 3.8 cm. The descending aorta is normal caliber. Great vessels arise normally from the arch. T here is no dissection or ulcerated plaque. Normal size pulmonary artery. Heart is normal size. There are a few scattered coronary artery calcifi cations. No mediastinal or hilar adenopathy. Lungs are very mildly hyperexpanded. No mass or nodule. No pericardial or pleural effusions. Negative chest wall. Stomach is significantly distended with food products. No adrenal mass. There are few calcifications within the pancreas which are typically seen after episodes of pancreatitis. No acute pancreatitis at this time. IMPRESSION: 1. No change in the mildly dilated aortic root measuring up to 4.2 cm. 2. Normal sinotubular diameter of 3.2 cm. 3. Mild dilatation and ectasia of the ascending aorta to 3.8 cm which is unchanged. Normal descendin g aorta. 4. No dissection or ulcerated plaque.
[2023-09-28] MEDS: iohexol 350 mg/mL 500 mL Btl (per mL) IV (09:12)
== END 2023-09-28 08:29 | disposition home or self-care (01) ==
LOC: RAD 08:31
PROVIDERS: PCP Nurse Practitioner Family; Visit Provider Thoracic Surgery (Cardiothoracic Vascular Surgery)
DX: I77.810 Thoracic aortic ectasia (principal)
CPT/HCPCS: 71275; Q9967

== ENCOUNTER → 2023-10-04 12:31 | Outpatient (BNVA) | payer MEDICARE, SELFPAY | PROVIDERS: PCP Nurse Practitioner Family; Visit Provider Thoracic Surgery (Cardiothoracic Vascular Surgery) | DX: I77.810 Thoracic aortic ectasia (principal) | CPT/HCPCS: 99213 ==

== ENCOUNTER → 2024-04-06 08:55 | Outpatient (BNVA) | payer MEDICARE, SELFPAY | PROVIDERS: PCP Nurse Practitioner Family; Visit Provider Nurse Practitioner Family | DX: Z12.5 Encounter for screening for malignant neoplasm of prostate (principal); I10 Essential (primary) hypertension; E53.8 Deficiency of other specified B group vitamins | CPT/HCPCS: 80053; 80061; 82607; 84443; 85025; G0103 ==

== ENCOUNTER → 2024-09-21 09:05 | Outpatient (BNVA) | payer MEDICARE, SELFPAY | PROVIDERS: PCP Clinical Nurse Specialist Adult Health; Visit Provider Clinical Nurse Specialist Adult Health | DX: I10 Essential (primary) hypertension (principal) | CPT/HCPCS: 80053; 80061; 85025 ==